=== PATIENT | male | born 1990 | race African-American/Black ===

== ENCOUNTER 2016-08-21 15:49 | Inpatient (IN) | payer OTHER ==
--- NOTE | ~2016-08-21 | HP ---
Unit #: [id number] #: [id number] Patient: DUC LYNN [id number] [place] [address] [id number] I MR#: [id number] NAME: DUC LYNN. ROOM: P180 Age: 26 Sex: M Admission Date: 08/21/2016 : 1990 Attending Physician: Barb Gonzales M.D. Admitting Physician: Barb Gonzales M.D. Primary Care Physician: Deysi Robledo M.D. HISTORY AND PHYSICAL HISTORY OF PRESENT ILLNESS Duc is 26-year-old male admitted on 08/21/2016 to [facility] for detox from heroin and opiates. PAST MEDICAL HISTORY None. PAST SURGICAL HISTORY Left pinky surgical repair after a fracture. ALLERGIES None. SOCIAL HISTORY Smokes 5 cigarettes daily. No alcohol use. Does report daily use of heroin and opiate pills. He is currently single and living with his girlfriend. FAMILY HISTORY Noncontributory. REVIEW OF SYSTEMS CONSTITUTIONAL: No fever or chills. HEENT: Denies any sore throat, ear pain or runny nose. CARDIOVASCULAR: Denies chest pain, irregular heart rhythm or palpitations. CHEST: Denies shortness of breath or cough. No hemoptysis. GASTROINTESTINAL: Denies nausea, vomiting, diarrhea or chronic constipation. ENDOCRINE: Denies history of increased thirst or urination. No recent significant weight loss or gain. GENITOURINARY: Denies dysuria, frequency, or hematuria. SKIN: Denies any rashes. HEMATOLOGIC: Denies history of increased bleeding or bruising. MUSCULOSKELETAL: Denies any hot, swollen joints. No generalized muscle pain. NEUROLOGIC: Denies problems with vision or speech. No frequent, severe headaches. No numbness, tingling or weakness in any extremities. Denies loss of bladder or bowel control. CURRENT MEDICATIONS None. PHYSICAL EXAMINATION Unit #: [id number] #: [id number] Patient: DUC LYNN GENERAL: Alert, oriented, in no acute distress. VITAL SIGNS: Blood pressure 144/90, heart rate 101, respirations 16. HEIGHT: 5 feet 8. WEIGHT: 150 pounds. SKIN: Warm and dry without rash or lesion. HEENT: Normocephalic. TMs not viewed. Oral and nasal passages clear. Conjunctivae clear. PERRLA. EOMs intact. NECK: Supple without lymphadenopathy or thyromegaly. HEART: Regular rate and rhythm without murmur. LUNGS: Clear. ABDOMEN: Soft, nontender, without masses or hepatosplenomegaly. : Not done. EXTREMITIES: No evidence of cyanosis, clubbing or edema. Moves all without focal deficit. NEUROLOGICAL: Grossly within normal limits. Cranial Nerves: II: Visual salinas are intact. III, IV AND : Extraocular movements are intact. Pupils are equal, round and reactive to light. V: Facial sensation is grossly normal. VII: Facial movements and expression are normal. VIII: Auditory acuity grossly intact. IX, X: Uvula is midline. Phonation is normal. XI: Patient shrugs shoulders and turns head normally. XII: Tongue protrudes in the midline. Sensory and Motor Function: Sensory and motor sensation is grossly normal. Motor: moves all extremities well. Coordination: Gait is normal. Deep Tendon Reflexes: Intact. IMPRESSION Psychiatric admission. RECOMMENDATIONS PSYCHIATRIC: Per psychiatrist. MEDICAL: No contraindications to participate in facility's activities. MEDICAL PROGNOSIS Good. MEDICAL CONDITION Stable. Dictated by... Clive Folrentino/laure TD: 08/22/2016 15:25 JOB #: [id number] Unit #: [id number] #: [id number] Patient: DUC LYNN HISTORY AND PHYSICAL Page 1 of 1 X SHOSHANA FLEMING APRN HISTORY AND PHYSICAL
--- NOTE | ~2016-08-21 | PN ---
Unit #: [id number] #: [id number] Patient: SYDNEE LYNN [id number] [facility] [address] [place] [address] [id number] MR#: [id number] NAME: SYDNEE LYNN. ROOM: P175 Age: 26 Sex: M Admission Date: 08/21/2016 : 1990 Attending Physician: Barb Gonzales M.D. Admitting Physician: Barb Gonzales M.D. Primary Care Physician: Fawn Pereyra PROGRESS NOTES DATE 08/23/2016 DISCUSSION Mr. Lynn is a 26-year-old, male e who was seen today and chart was reviewed and case was discussed with the staff. He has been anxious, withdrawn and rather seclusive to himself. He has been cooperative with the treatment recommendations. He has been taking the medication and tolerating them fairly well. MENTAL STATUS EXAM Young male who was casually dressed with fair personal hygiene, appears to be in no acute distress or discomfort. He was awake and alert on interaction with intact orientation. His mood was anxious with congruent affect. He denies any suicidal or homicidal ideation. His insight and judgement remains slightly impaired. TREATMENT PLAN 1. We will continue him on his current treatment protocol. We will monitor his response to the medication and make further adjustments as needed. 2. We will continue to follow up. Dictated by... Fawn Orourke/shannan TD: 08/24/2016 21:16 JOB #: [id number] Unit #: [id number] #: [id number] Patient: SYDNEE LYNNJACKSON PROGRESS NOTES Page 1 of 1 X Barb Gonzales MD X PROGRESS NOTE
--- NOTE | ~2016-08-21 | DS ---
Unit #: [id number] #: [id number] Patient: [facility]YNN [id number] [facility] [address] [place] [address] [id number] MR#: [id number] NAME: SYDNEE LYNN. ROOM: [facility] Age: 26 Sex: M Admission Date: 08/21/2016 : 1990 Discharge Date: 08/24/2016 Attending Physician: Barb Gonzales M.D. Primary Care Physician: Deysi Robledo M.D. DISCHARGE SUMMARY IDENTIFYING DATA Mr. Lynn is a 26-year-old male, who was self-referred to the hospital. DISCHARGE DIAGNOSES Psychiatric: Opioid dependence, moderate and acute withdrawals; opioid-induced mood disorder. Medical: None. Stressors: Moderate psychosocial stressors. HISTORY OF PRESENT ILLNESS Please see initial psychiatric evaluation for details. PAST PSYCHIATRIC HISTORY Please see initial psychiatric evaluation for details. PAST MEDICAL HISTORY Please see initial psychiatric evaluation for details. HOSPITAL COURSE The patient [facility] and was oriented to hospital environment. Routine p.r.n. medications were initiated and was started back on his home medications and medications were adjusted and closely monitored. He was taking medications regularly and was tolerating them fairly well and was able to show a decent therapeutic response and was able to come out of the detox without any complications and was willing to continue treatment on an outpatient basis, and as such, it was decided that he will be discharged home and will continue treatment on an outpatient basis. DISCHARGE MEDICATIONS None. DISCHARGE CONDITION Stable. PROGNOSIS Guarded. Dictated by... Unit #: [id number] #: [id number] Patient: SYDNEE LYNN Fawn Orourke/bettyl TD: 09/30/2016 01:45 JOB #: [id number] DISCHARGE SUMMARY Page 1 of 1 X Barb Gonzales MD X DISCHARGE SUMMARY
--- NOTE | ~2016-08-21 | PA ---
Unit #: [id number] #: [id number] Patient: SYDNEE LYNN [id number] [facility] [address] [place] [address] [id number] Joanna MR#: [id number] NAME: SYDNEE LYNN. ROOM: P180 Age: 26 Sex: M Admission Date: 08/21/2016 : 1990 Date of Assessment: Attending Physician: Barb Gonzales M.D. Admitting Physician: Barb Gonzales M.D. Primary Care Physician: Deysi Robledo M.D. PSYCHIATRIC ASSESSMENT DATE OF SERVICE 08/22/2016. IDENTIFYING DATA Mr. Lynn is a 26-year-old single male, who is a resident of [place], [place], and was self-referred to the hospital on a voluntary basis. CHIEF COMPLAINT "I need to get off from heroin." HISTORY OF PRESENT ILLNESS Mr. Lynn is a 26-year-old male, who was self-referred to the hospital stating that he has been using heroin for the last couple of years and he started and now "it has gotten out of control. I need some help to get my mind and body right. I have been using for the past 2 years. I'm smoking and snorting daily 1 g a day, my last use was yesterday. I have lost everything, my job and my car and my relationship with my girlfriend is borderline and I need to get my life back. The drug has caused me to think crazy by having feelings of hopelessness because I'm unable to stop my addiction on my own. I feel like I have let a lot of people down and people look at me so negatively and I have hit rock bottom. I'm not actively suicidal or homicidal, I just need help." The patient does report depression, anxiety, irritability, restlessness, and feelings of hopelessness and helplessness. Denies any current suicidal or homicidal ideations. SUBSTANCE ABUSE HISTORY The patient reports history of alcohol, cannabis, and opioid abuse, and currently opioids, particularly heroin has been his drug of choice as he reports that he has been using up to a gram a day. PAST PSYCHIATRIC HISTORY The patient has not had any prior inpatient or outpatient psychiatric treatment. Currently, he is not active in any treatment program, is not seeing a psychiatrist, and is not taking any psychotropic medications. PAST MEDICAL HISTORY No acute or chronic medical illnesses. ALLERGIES No known medication allergies. Unit #: [id number] #: [id number] Patient: SYDNEE LYNN PERSONAL AND SOCIAL HISTORY A 26-year-old male, who reports that he lives at home with his mother and is currently unemployed and has poor social support system. MENTAL STATUS EXAMINATION Young male, who was casually dressed with fair personal hygiene, appears to be in no acute distress or discomfort. He was awake and alert on interaction with intact orientation to time, place, and person. His mood was anxious and depressed with a congruent affect. His speech was slow and restricted in content. His thought processes were disorganized with some looseness of associations and flight of ideas and suicidal ideations. His insight and judgment remain significantly impaired. DIAGNOSTIC IMPRESSION Psychiatric: Opioid dependence, moderate, in acute withdrawals and opioid-induced mood disorder. Medical: None. Stressors: Moderate psychosocial stressors. TREATMENT PLAN 1. The patient has presented with a history of substance abuse and mood disorder and has been decompensating and will need inpatient hospitalization for detoxification, safety, and stabilization. We will start him on detox protocol. We will closely monitor for any worsening withdrawal symptoms. 2. Supportive therapy was provided to the patient. 3. Safe, structured, and nourishing environment will be provided. ESTIMATED LENGTH OF STAY 5 to 7 days. ABILITY TO HELP SELF Limited. WILLINGNESS TO HELP SELF The patient appears to be willing to help self. STRENGTHS 1. Communicative. 2. Cooperative. PROBLEMS 1. Chronic dysphoric symptoms. 2. Chronic chemical dependency. 3. Poor social support system. DISCHARGE CRITERIA This will be contingent upon the patient's ability to go through detox without having any significant withdrawal symptoms as well as his ability to stay safe to himself, particularly after discharge from the hospital. Dictated by... Fawn Orourke/bettyl Unit #: [id number] #: [id number] Patient: SYDNEE LYNN TD: 08/22/2016 10:38 JOB #: [id number] PSYCHIATRIC ASSESSMENT Page 1 of 1 X Barb Gonzales MD PSYCHIATRIC ASSESSMENT
--- NOTE | ~2016-08-21 | A ---
[facility] Nutrition Therapy DATE: 08/24/16 Patient: SYDNEE LYNN Physician: AFAIRF Address: [address] [place] [address] Room/Bed: [address], Zip: [place] [address] Admit Date: 08/21/16 Date of : [birth year] Height: 5 8 Weight: 149 68.0388 NUTRITIONAL ASSESSMENT: REASON: NUTRITIONAL RISK POINT- UNINTENTIONAL WEIGHT LOSS PATIENT ADMITTED FOR HEROIN DETOX PMH: NONE Anthropometrics: HT: 5'8", WT: 150#, BMI: 22.8 Labs: 08/22/16- NUTRITIONAL LABS WNL Meds: DESYREL, DETOX PROTOCOL, MVI Assessment: PATIENT IS A 26 Y/O MALE ADMITTED FOR HEROIN DETOX. PATIENT IS CURRENTLY UNEMPLOYED, LIVES WITH HIS MOTHER, SMOKES 1/2 PPD, AND HAS DAILY HEROIN USE FOR LAST 2 YEARS. PATIENT'S TOX SCREEN WAS ALSO POSITIVE FOR AMPHETAMINES. PATIENT STATED A POOR APPETITE WITH A 5# WEIGHT LOSS OVER LAST 3 DAYS, AND HE HAS NOT BEEN SLEEPING. NURSING REPORTS GOOD PO INTAKES. WEIGHT HX PER [employer] SHOWS STABLE WEIGHTS, WITH WEIGHT FLUCTUATIONS OF 145-160# OVER LAST 6 YEARS. THERE ARE NO SKIN OR GI ISSUES NOTED ATT. PATIENT IS ON A REGULAR DIET WITH NO CAFFEINE, AND RECEIVES LARGE PORTION ENTREES. Dx: UNINTENTIONAL WEIGHT LOSS R/T CURRENT CONDITION, DRUG USE AEB SELF-REPORTED WEIGHT LOSS, DECREASED APPETITE, NUTRITIONAL RISK POINT Intervention: 1. REGULAR DIET, 2. LARGE PORTION ENTREE, 3. MEDS PER MD, 4. DETOX, 5. PSYCH Monitoring, Evaluation and Goals: 1. ADEQUATE PO INTAKES >50% OF MEALS 2. PREVENT, CORRECT MICRO/MACRO NUTRIENT DEFICIENCIES 3. MAINTAIN CURRENT WEIGHT MONITOR: WEIGHTS, LABS, PO/FLUID INTAKES Recommendations: 1. CONTINUE REGULAR DIET WITH NO CAFFEINE AND LARGE PORTION ENTREES TOLERATED 2. ENCOURAGE ADEQUATE PO AND FLUID INTAKES RD TO F/U PER PROTOCOL AND PRN R/T PATIENT MILDLY COMPROMISED [facility] Nutrition Therapy DATE: 08/24/16 Patient: SYDNEE LYNN Physician: AFAIRF Address: [address] [place] [address] Room/Bed: [address], Zip: [place] [address] Admit Date: 08/21/16 Date of : [birth year] Height: 5 8 Weight: 149 68.0388 Respectfully, CHRISTIANO GONGORA RD, LD [employer] [facility] cc: client file
[~2016-08-21 15:49] MED LIST: ALBUTEROL17 G1 IH; ATARAX PO; BENZONATATE PO; FAMOTIDINE PO; FLEXERIL10 MG PO; HYDROCODON-ACE1 EAC7 PO; IBUPROFEN800 MG PO; IMODIUM2 MG PO; LORTAB 5/500 TA1 TA2 PO; NAPROSYN500 MG PO; NAPROXEN500 M1 PO; NO MEDICATIONS; PHENERGAN25 M1 PO; PRILOSEC20 M1 PO; ROBAXIN500 MG PO; TYLENOL #3 PO; VOLTAREN75 MG PO; ZOFRAN ODT4 MG/UDTAB PO
[2016-08-22 11:20] LABS: BASOPHIL% 0.8 % (0-2.5); DIFF IND NO; EOSINOPHIL% 0.7 % (0.0-7.0); HEMATOCRIT 44.5 % (38.0-50.0); HEMOGLOBIN 14.3 gm/dL (13.0-16.0); LYMPHOCYTE% 44.6 % (17.0-45.0); MEAN CELL VOLUME 84.7 FL (83-96); MEAN CORPUSCULAR HEMOGLOBIN 27.3 PG (28-34); MEAN CORPUSCULAR HGB CONC 32.2 g/dL (30-36); MEAN PLATELET VOLUME 8.2 FL (6.5-11.5); MONOCYTE# 0.5 X10e3 (0-1.0); MONOCYTE% 10.8 % (3.0-12.0); NEUTROPHIL# 1.9 X10e3 (1.5-7.1); NEUTROPHIL% 43.1 % (40-75); PLATELET COUNT 254 X10e3 (140-420); RED BLOOD COUNT 5.25 X10e (3.90-5.60); RED CELL DISTRIBUTION WIDTH 14.6 % (11.0-15.5); WHITE BLOOD COUNT 4.4 X10e3 (4.0-10.5)
[2016-08-22 12:04] LABS: ALBUMIN SERUM 4.3 g/dL (3.5-5.0); BILIRUBIN,TOTAL 1.1 mg/dL (0.2-2.0); CALCIUM SERUM 9.4 mg/dL (8.4-10.2); GLOM FILT RATE Estimated 119.9 mL/min (>60); POTASSIUM 4.9 mmol/L (3.5-5.1); PROTEIN TOTAL SERUM 7.1 g/dL (6.0-8.3)
[2016-08-22 13:08] LABS: URINE APPEARANCE TURBID; URINE BLOOD NEG (NEG); URINE COLOR DK YELLOW; URINE GLUCOSE NEG (NEG); URINE KETONE TRACE (NEG); URINE LEUKOCYTE ESTERASE NEG (NEG); URINE NITRATE NEG (NEG); URINE PROTEIN 1+ (NEG); URINE SPECIFIC GRAVITY 1.035 (1.003-1.035)
[2016-08-22 13:11] LABS: URBCS1 AUWI 0-2 /[HPF] (0-2); URINE BACTERIA AUWI NEG (NEGATIVE); URINE SQUAMOUS EPITHELIAL CELL OCC /[HPF]
[2016-08-22 13:16] LABS: U HYALINE CASTS AUWI 0-2 /[LPF]; URINE BILIRUBIN NEG (NEG)
[2016-08-22 13:33] LABS: AMPHETAMINE POS (NEG); BARBITURATES NEG (NEG); BENZODIAZEPINES NEG (NEG); COCAINE NEG (NEG); MARIJUANA NEG (NEG); OPIATES POS (NEG); TRICYCLIC ANTIDEPRESSANTS NEG (NEG); U METHADONE NEG (NEG)
== END 2016-08-24 14:50 | disposition home or self-care (01) | DRG 897 ==
LOC: P1E 15:49 → POF 08-23 20:34 → P1E 08-23 20:36
PROVIDERS: Psychiatry & Neurology Psychiatry
PROC: HZ2ZZZZ Detoxification Services for Substance Abuse Treatment (ICD-10-PCS; principal; 2016-08-21)
DX: F11.23 Opioid dependence with withdrawal (principal); R45.851 Suicidal ideations; F11.24 Opioid dependence with opioid-induced mood disorder; F17.210 Nicotine dependence, cigarettes, uncomplicated
CPT/HCPCS: 80053; 80307; 81003; 85025; 86592

== ENCOUNTER 2016-08-30 20:56 | Emergency (ER) | payer OTHER ==
[2016-08-30 21:06] LABS: BASOPHIL# 0.1 X10e3 (0-0.3); EOSINOPHIL% 0.4 % (0.0-7.0); HEMATOCRIT 47.4 % (38.0-50.0); HEMOGLOBIN 15.5 gm/dL (13.0-16.0); MEAN CELL VOLUME 84.5 FL (83-96); MEAN CORPUSCULAR HEMOGLOBIN 27.6 PG (28-34); MEAN CORPUSCULAR HGB CONC 32.6 g/dL (30-36); MEAN PLATELET VOLUME 7.4 FL (6.5-11.5); MONOCYTE# 0.5 X10e3 (0-1.0); MONOCYTE% 8.1 % (3.0-12.0); NEUTROPHIL# 3.3 X10e3 (1.5-7.1); NEUTROPHIL% 56.5 % (40-75); PLATELET COUNT 292 X10e3 (140-420); RED BLOOD COUNT 5.61 X10e (3.90-5.60); RED CELL DISTRIBUTION WIDTH 14.4 % (11.0-15.5); WHITE BLOOD COUNT 5.9 X10e3 (4.0-10.5)
[2016-08-30 21:07] LABS: DIFF IND NO
[2016-08-30 21:27] LABS: ALBUMIN SERUM 5.3 g/dL (3.5-5.0); BILIRUBIN,TOTAL 0.4 mg/dL (0.2-2.0); BUN/CREATININE RATIO 15.55; CALCIUM SERUM 9.4 mg/dL (8.4-10.2); CREATININE SERUM 0.9 mg/dL (0.6-1.4); GLOM FILT RATE Estimated 136.1 mL/min (>60); POTASSIUM 3.9 mmol/L (3.5-5.1); PROTEIN TOTAL SERUM 8.4 g/dL (6.0-8.3)
== END 2016-08-30 23:00 | disposition home or self-care (01) ==
LOC: SED 20:56
PROVIDERS: Physician Assistant
DX: T51.91XA Toxic effect of unspecified alcohol, accidental (unintentional), initial encounter (principal); Y92.009 Unspecified place in unspecified non-institutional (private) residence as the place of occurrence of the external cause
CPT/HCPCS: 80053; 85025; 96360; 99284; G0480; J2310

== ENCOUNTER 2016-10-15 20:00 | Inpatient (IN) | payer OTHER ==
--- NOTE | ~2016-10-15 | DS ---
Unit #: [id number] #: [id number] Patient: SYDNEE LYNN [id number] [facility] [address] [place] [address] [id number] MR#: [id number] NAME: SYDNEE LYNN. ROOM: [facility] Age: 26 Sex: M Admission Date: 10/15/2016 : 1990 Discharge Date: 10/20/2016 Attending Physician: Barb Gonzales M.D. Primary Care Physician: Deysi Robledo M.D. DISCHARGE SUMMARY IDENTIFYING DATA Mr. Lynn is a 26-year-old, single, male who is a resident of [place], [place], and was self-referred to the hospital on voluntary basis. DISCHARGE DIAGNOSES Psychiatric: Major depressive disorder, recurrent, moderate, without psychotic features; opioid dependence, moderate and acute withdrawals. Medical: None. Stressors: Moderate psychosocial stressors. HISTORY OF PRESENT ILLNESS Please see initial psychiatric evaluation for details. PAST PSYCHIATRIC HISTORY Please see initial psychiatric evaluation for details. PAST MEDICAL HISTORY Please see initial psychiatric evaluation for details. HOSPITAL COURSE The patient [facility] and was oriented to the hospital environment. Routine p.r.n. medications were initiated, and he was started on the opioid detox protocol and was closely monitored. He was seen to be polite and pleasant, and cooperative with treatment recommendations as he was taking the medications regularly and was tolerating them fairly well and was able to come out of the detox without any complications and was willing to continue treatment on an outpatient basis and as such, it was decided that he will be discharged home and will continue treatment on an outpatient basis. DISCHARGE MEDICATIONS Trazodone 100 mg at bedtime for sleep. DISCHARGE CONDITION Stable. PROGNOSIS Fair. Dictated by... Barb Gonzales M.D. Unit #: [id number] #: [id number] Patient: SYDNEE LYNN IAA/modl TD: 10/20/2016 22:40 JOB #: [id number] DISCHARGE SUMMARY Page 1 of 1 X Barb Gonzales MD X DISCHARGE SUMMARY
--- NOTE | ~2016-10-15 | PN ---
Unit #: [id number] #: [id number] Patient: SYDNEE LYNN [id number] [facility] [address] [place] [address] [id number] MR#: [id number] NAME: SYDNEE LYNN. ROOM: P214 Age: 26 Sex: M Admission Date: 10/15/2016 : 1990 Attending Physician: Barb Gonzales M.D. Admitting Physician: Barb Gonzales M.D. Primary Care Physician: Fawn Pereyra PROGRESS NOTES DATE OF SERVICE: 10/19/2016 SUBJECTIVE Mr. Lynn is a 26-year-old white male, who was seen today and chart was reviewed and the case was discussed with the staff. He has been anxious, withdrawn, and rather seclusive to himself. Meanwhile, he has been cooperative with the treatment recommendations and has been taking the medications and tolerating them fairly well with no reported side effects. MENTAL STATUS EXAMINATION Young white male, who was casually dressed with fair personal hygiene, appears to be in no acute distress or discomfort. He was awake and alert on interaction with intact orientation. His mood was anxious with a congruent affect. He denies any suicidal or homicidal ideations. His insight and judgment remain slightly impaired. TREATMENT PLAN 1. We will continue him on his current treatment protocol. We will monitor his response to the medications and make further adjustments as needed. 2. We will continue to follow up. Dictated by... Fawn Orourke/kai TD: 10/19/2016 17:32 JOB #: [id number] [facility] PROGRESS NOTES Page 1 of 1 X Barb Gonzales MD X PROGRESS NOTE
--- NOTE | ~2016-10-15 | PN ---
Unit #: [id number] #: [id number] Patient: SYDNEE LYNN [id number] [facility] [address] [place] [address] [id number] I MR#: [id number] NAME: SYDNEE LYNN. ROOM: P214 Age: 26 Sex: M Admission Date: 10/15/2016 : 1990 Attending Physician: Barb Gonzales M.D. Admitting Physician: Barb Gonzales M.D. Primary Care Physician: Fawn Pereyra PROGRESS NOTES DATE OF SERVICE: 10/18/2016 SUBJECTIVE Mr. Lynn is a 26-year-old male who was seen today and chart was reviewed and case was discussed with the staff. He has been anxious, withdrawn, and rather seclusive to himself. Meanwhile, he has been cooperative with treatment recommendations and has been taking the medications and tolerating them fairly well. MENTAL STATUS EXAMINATION Young male who was casually dressed with fair personal hygiene, appears to be in no acute distress or discomfort. He was awake and alert on interaction with intact orientation. His mood was anxious with a congruent affect. His speech was slow and goal directed. He denies any suicidal or homicidal ideations. His insight and judgment remain slightly impaired. TREATMENT PLAN 1. We will continue him on his current medications and treatment protocol. We will monitor his response to the medications and make further adjustments as needed. 2. We will continue to follow up. Dictated by... Fawn Orourke/kai TD: 10/20/2016 01:46 JOB #: [id number] [facility] PROGRESS NOTES Page 1 of 1 X Barb Gonzales MD X PROGRESS NOTE
--- NOTE | ~2016-10-15 | PA ---
Unit #: [id number] #: [id number] Patient: [facility]YNN [id number] [facility] [place] [address] [id number] I MR#: [id number] NAME: SYDNEE LYNN. ROOM: P212 Age: 26 Sex: M Admission Date: 10/15/2016 : 1990 Date of Assessment: 10/16/2016 Attending Physician: Barb Gonzales M.D. Admitting Physician: Barb Gonzales M.D. Primary Care Physician: Deysi Robledo M.D. PSYCHIATRIC ASSESSMENT DATE OF SERVICE 10/16/2016. IDENTIFYING DATA Mr. Lynn is a 26-year-old single male, who is a resident of [place], [place], and was self-referred to the hospital and was accompanied by his mother. CHIEF COMPLAINT "Former heroin use and I'm having bad thoughts." HISTORY OF PRESENT ILLNESS Mr. Lynn is a 26-year-old male with history of opioid dependence, who presented to the hospital stating that he is here to get detox from heroin and that he has been having bad thoughts "to hurt myself. I just want to be done with it." He does report significant consequences because of his addiction and has been unemployed for 2 months and has been staying with his mother and has no income and reports having "social stressors." Reports conflict with everybody and has been exhibiting significant depression, anxiety, irritability, disturbed sleep, psychomotor agitation, feelings of hopelessness and helplessness, and suicidal ideations and as such, recommendation for inpatient level of care for safety and stabilization was made. SUBSTANCE ABUSE HISTORY The patient reports history of alcohol, cannabis, and opioids abuse, and currently opioids, particularly heroin has been his drug of choice as he reports that he has been using half a gram of heroin a day by snorting it. PAST PSYCHIATRIC HISTORY The patient has had history of inpatient chemical dependency [facility], and review of the medical records indicate that currently he is not active in any treatment program, is not seeing a psychiatrist, and is not taking any psychotropic medications. PAST MEDICAL HISTORY Asthma. ALLERGIES No known medication allergies. CURRENT MEDICATIONS None. Unit #: [id number] #: [id number] Patient: SYDNEE LYNN PERSONAL AND SOCIAL HISTORY A 26-year-old male, who reports that he is single and lives at home with his mother and stepfather and sister and has fairly decent social support system. MENTAL STATUS EXAMINATION Young male who was casually dressed with fair personal hygiene, appears to be in no acute distress or discomfort. He was awake and alert on interaction with intact orientation to time, place, and person. His mood was anxious and depressed with a congruent affect. His speech was slow and goal directed. He reports having suicidal ideations, but denies any homicidal ideations, and also denies any auditory or visual hallucinations. His insight and judgment remain significantly impaired. DIAGNOSTIC IMPRESSION Psychiatric: Major depressive disorder, recurrent, moderate, without psychotic features; opioid dependence, moderate and acute withdrawals. Medical: None. Stressors: Moderate psychosocial stressors. TREATMENT PLAN 1. The patient has presented with history of substance abuse and mood disorder, and has been decompensating and will need inpatient hospitalization for safety and stabilization. We will start him back on his home medications. We will adjust the medications and monitor response. 2. Supportive therapy was provided to the patient. ESTIMATED LENGTH OF STAY 5 to 7 days. ABILITY TO HELP SELF Limited. WILLINGNESS TO HELP SELF The patient appears to be willing to help self. STRENGTHS 1. Communicative. 2. Cooperative. PROBLEMS 1. Chronic dysphoric symptoms. 2. Chronic chemical dependency. 3. Poor social support system. DISCHARGE CRITERIA This will be contingent upon the patient's ability to show resolution of his depression and anxiety and his ability to go through detox without having any significant withdrawal symptoms. Dictated by... Barb Gonzales M.D. MARGE/kai TD: 10/16/2016 07:14 Unit #: [id number] #: [id number] Patient: SYDNEE LYNN JOB #: [id number] PSYCHIATRIC ASSESSMENT Page 1 of 1 X Barb Gonzales MD PSYCHIATRIC ASSESSMENT
--- NOTE | ~2016-10-15 | HP ---
Unit #: [id number] #: [id number] Patient: DUC LYNN [id number] [facility] [address] [place] [address] [id number] MR#: [id number] NAME: DUC LYNN. ROOM: P212 Age: 26 Sex: M Admission Date: 10/15/2016 : 1990 Attending Physician: Barb Gonzales M.D. Admitting Physician: Barb Gonzales M.D. Primary Care Physician: Deysi Robledo M.D. HISTORY AND PHYSICAL HISTORY OF PRESENT ILLNESS Duc is a 26 year old admitted to [address] [place] [address] because of his continued drug use. He snorts heroin. PAST MEDICAL HISTORY Long history of opioid abuse to include snorting heroin. PAST SURGICAL HISTORY Nothing reported. ALLERGIES No known drug allergies. SOCIAL HISTORY Smokes less than 1/2 pack per day. Denies alcohol. Admits to a long history of opioid abuse to include snorting heroin. FAMILY HISTORY Medically noncontributory. REVIEW OF SYSTEMS CONSTITUTIONAL: No fever or chills. HEENT: Denies any sore throat, ear pain or runny nose. CARDIOVASCULAR: Denies chest pain, irregular heart rhythm or palpitations. CHEST: Denies shortness of breath or cough. No hemoptysis. GASTROINTESTINAL: Denies nausea, vomiting, diarrhea or chronic constipation. ENDOCRINE: Denies history of increased thirst or urination. No recent significant weight loss or gain. GENITOURINARY: Denies dysuria, frequency, or hematuria. SKIN: Denies any rashes. HEMATOLOGIC: Denies history of increased bleeding or bruising. MUSCULOSKELETAL: Denies any hot, swollen joints. No generalized muscle pain. NEUROLOGIC: Denies problems with vision or speech. No frequent, severe headaches. No numbness, tingling or weakness in any extremities. Denies loss of bladder or bowel control. CURRENT MEDICATIONS Detox protocol. PHYSICAL EXAMINATION GENERAL: Alert, well-nourished, in no apparent distress. Unit #: [id number] #: [id number] Patient: DUC LYNN VITAL SIGNS: Blood pressure 120/84, heart rate 72, respirations 16, temperature 98.6. WEIGHT: 155. HEIGHT: 5 feet 8 inches. SKIN: Warm and dry without rash or lesion. HEENT: Normocephalic. TMs not viewed. Oral and nasal passages clear. Conjunctivae clear. PERRLA. EOMs intact. NECK: Supple without lymphadenopathy or thyromegaly. HEART: Regular rate and rhythm without murmur. LUNGS: Clear. ABDOMEN: Soft, nontender. : Not done. EXTREMITIES: No evidence of cyanosis, clubbing or edema. Moves all without focal deficit. NEUROLOGICAL: Grossly within normal limits. Cranial Nerves: II: Visual sal[place] are intact. III, IV AND : Extraocular movements are intact. Pupils are equal, round and reactive to light. V: Facial sensation is grossly normal. VII: Facial movements and expression are normal. VIII: Auditory acuity grossly intact. IX, X: Uvula is midline. Phonation is normal. XI: Patient shrugs shoulders and turns head normally. XII: Tongue protrudes in the midline. Sensory and Motor Function: Sensory and motor sensation is grossly normal. Motor: moves all extremities well. Coordination: Gait is normal. Deep Tendon Reflexes: Intact. IMPRESSION Psychiatric admission. RECOMMENDATIONS PSYCHIATRIC: Per psychiatrist. MEDICAL: See no contraindications to participate in facility's activities. MEDICAL PROGNOSIS Good. MEDICAL CONDITION Stable. Dictated by... Dorita LealATom-Marilu. for Fawn Hull/laure TD: 10/16/2016 18:03 JOB #: [id number] Unit #: [id number] #: [id number] Patient: DUC LYNN HISTORY AND PHYSICAL Page 1 of 1 X Venus Lilly HISTORY AND PHYSICAL
[2016-10-17 12:02] LABS: BASOPHIL% 0.7 % (0-2.5); DIFF IND NO; EOSINOPHIL# 0.1 X10e3 (0-0.7); EOSINOPHIL% 1.4 % (0.0-7.0); LYMPHOCYTE# 1.6 X10e3 (1.0-3.5); LYMPHOCYTE% 33.2 % (17.0-45.0); MEAN CELL VOLUME 85.4 FL (83-96); MEAN CORPUSCULAR HEMOGLOBIN 27.9 PG (28-34); MEAN CORPUSCULAR HGB CONC 32.7 g/dL (30-36); MEAN PLATELET VOLUME 8.5 FL (6.5-11.5); MONOCYTE# 0.4 X10e3 (0-1.0); NEUTROPHIL# 2.7 X10e3 (1.5-7.1); NEUTROPHIL% 56.7 % (40-75); PLATELET COUNT 266 X10e3 (140-420); RED BLOOD COUNT 5.38 X10e (3.90-5.60); RED CELL DISTRIBUTION WIDTH 15.1 % (11.0-15.5); WHITE BLOOD COUNT 4.8 X10e3 (4.0-10.5)
[2016-10-17 12:11] LABS: ALBUMIN SERUM 4.4 g/dL (3.5-5.0); BILIRUBIN,TOTAL 0.8 mg/dL (0.2-2.0); BUN/CREATININE RATIO 17.5; CALCIUM SERUM 9.4 mg/dL (8.4-10.2); CREATININE SERUM 0.8 mg/dL (0.6-1.4); POTASSIUM 4.8 mmol/L (3.5-5.1); PROTEIN TOTAL SERUM 7.4 g/dL (6.0-8.3)
[2016-10-17 14:09] LABS: URINE APPEARANCE CLEAR; URINE BILIRUBIN NEG (NEG); URINE BLOOD NEG (NEG); URINE COLOR YELLOW; URINE GLUCOSE NEG (NEG); URINE KETONE NEG (NEG); URINE LEUKOCYTE ESTERASE NEG (NEG); URINE NITRATE NEG (NEG); URINE PROTEIN NEG (NEG); URINE SPECIFIC GRAVITY 1.018 (1.003-1.035); URINE UROBILINOGEN 0.2 MG/DL (NEG)
[2016-10-17 14:28] LABS: AMPHETAMINE NEG (NEG); BARBITURATES NEG (NEG); BENZODIAZEPINES NEG (NEG); COCAINE NEG (NEG); MARIJUANA NEG (NEG); OPIATES POS (NEG); TRICYCLIC ANTIDEPRESSANTS NEG (NEG); U METHADONE NEG (NEG)
== END 2016-10-20 08:40 | DRG 885 ==
LOC: P2S 22:00
PROVIDERS: Psychiatry & Neurology Psychiatry
PROC: HZ2ZZZZ Detoxification Services for Substance Abuse Treatment (ICD-10-PCS; principal; 2016-10-16)
DX: F33.1 Major depressive disorder, recurrent, moderate (principal); F11.23 Opioid dependence with withdrawal; F17.210 Nicotine dependence, cigarettes, uncomplicated
CPT/HCPCS: 80053; 80307; 81003; 85025; 86592